=== PATIENT | female | born 1965 | race African-American/Black ===

== ENCOUNTER → 2016-12-17 | Outpatient (CLI) | payer MEDICARE ==
--- NOTE | 2016-12-17 16:26 | KCIC ---
PROCEDURE MRI study of the left foot without contrast HISTORY New small wound of the 3rd metatarsal area. Possible osteomyelitis. History of previous amputations. TECHNIQUE Noncontrast MRI sequences of the left forefoot and midfoot were performed in all 3 planes. COMPARISON MRI study of the left foot dated August 06, 2015. FINDINGS The 2nd and 3rd and 5th digits have been amputated at the level of the metatarsal phalangeal joint. There is a round fluid collection encircling the distal epiphysis of the 2nd metatarsal bone. An abscess is certainly possible. This measures 2.4 centimeters in greatest dimension. No underlying T1 marrow signal abnormality or cortical erosion is seen. No underlying T2 bone marrow edema is evident. There is a dorsal soft tissue ulcer involving the area overlying the distal 3rd metatarsal bone. A sinus tract is seen extending deep from this ulcer all the way to the dorsal surface of the distal 3rd metatarsal epiphysis. There is cortical erosion and slight T1 marrow signal abnormality dorsally within this epiphysis. There is mild T2 bone marrow edema here. The findings are consistent with early osteomyelitis of the distal 3rd metatarsal bone. This is a new finding. There is decreased signal within the plantar soft tissues around the distal 5th metatarsal epiphysis. This could represent skin and/or soft tissue breakdown. No abscess or soft tissue edema is seen here. No underlying osteomyelitis is seen here. No fracture is evident. 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 There is lateral subluxation of the 1st proximal phalanx with respect to the distal 1st metatarsal bone. There is primary degenerative osteoarthritis involving the joint space between the sesamoid bones and the distal 1st metatarsal bone. The first proximal and distal phalanges are rotated and the 1st digit is flexed and angled laterally. No complete tendon rupture or tenosynovitis is seen. There is a small joint effusion of the 4th metatarsal phalangeal joint. Dorsal subcutaneous soft tissue edema is seen most prominent over the 3rd and 4th metatarsal region. This may represent cellulitis. IMPRESSION Amputation of the 2nd and 3rd and 5th digits at the level of the metatarsal phalangeal joint. Dorsal soft tissue wound overlying the distal 3rd metatarsal epiphysis. Sinus tract is seen extending down to the dorsal surface of the distal epiphysis. There are findings of early osteomyelitis of the distal 3rd metatarsal epiphysis. This is new since the previous study of 2014. No fracture is seen. Fluid collection is seen encircling the distal 2nd metatarsal epiphysis. This could represent a soft tissue abscess. Additional findings as discussed above. Electronically signed by: Marcelo Pizarro MD (Dec 17, 2016 16:24:28)
== END | disposition home or self-care (01) ==
LOC: KCIC MRI 13:12
PROVIDERS: ATTEND Podiatrist Foot & Ankle Surgery
DX: M86.8X7 Other osteomyelitis, ankle and foot (principal); M19.072 Primary osteoarthritis, left ankle and foot; M25.475 Effusion, left foot
CPT/HCPCS: 73718

== ENCOUNTER → 2017-03-09 | Outpatient (CLI) | payer MEDICARE | END | disposition home or self-care (01) | LOC: PMGWOUND 07:50 | PROVIDERS: ATTEND Emergency Medicine Undersea and Hyperbaric Medicine | DX: E11.621 Type 2 diabetes mellitus with foot ulcer (principal); L97.512 Non-pressure chronic ulcer of other part of right foot with fat layer exposed; L97.522 Non-pressure chronic ulcer of other part of left foot with fat layer exposed; E11.69 Type 2 diabetes mellitus with other specified complication; M86.8X7 Other osteomyelitis, ankle and foot; M19.072 Primary osteoarthritis, left ankle and foot; Z89.422 Acquired absence of other left toe(s) | CPT/HCPCS: 87205; 97597 ==

== ENCOUNTER → 2017-03-16 | Outpatient (CLI) | payer MEDICARE ==
--- NOTE | 2017-03-16 13:50 | RAD ---
EXAM: Left foot 3 views. HISTORY: Nonhealing wound. COMPARISON: None. FINDINGS: The 2nd, 3rd and 5th digits have been amputated. There is a deep ulcer along the plantar aspect of the 2nd metatarsal head. This extends to near the bone if not to the bone. There is no definitive cortical erosion to indicate acute osteomyelitis. There is moderate to severe hallux valgus with mild to moderate 1st metatarsophalangeal osteoarthritis. No fractures are identified. Tarsometatarsal osteoarthritis is moderate. Pes planus is noted. There is a moderate plantar calcaneal spur. IMPRESSION: 1. A deep ulcer overlying the 2nd metatarsal head extends at least to near the bone. No gross radiographic evidence of acute osteomyelitis. If the ulcer extends to the bone, osteomyelitis may be presumed.
== END | disposition home or self-care (01) ==
LOC: PMGWOUND 08:05
PROVIDERS: ATTEND Emergency Medicine Undersea and Hyperbaric Medicine
DX: E11.621 Type 2 diabetes mellitus with foot ulcer (principal); L97.512 Non-pressure chronic ulcer of other part of right foot with fat layer exposed; L97.411 Non-pressure chronic ulcer of right heel and midfoot limited to breakdown of skin; L97.522 Non-pressure chronic ulcer of other part of left foot with fat layer exposed; E11.69 Type 2 diabetes mellitus with other specified complication; M86.8X7 Other osteomyelitis, ankle and foot; M19.072 Primary osteoarthritis, left ankle and foot; Z89.422 Acquired absence of other left toe(s)
CPT/HCPCS: 73630; 97597

== ENCOUNTER → 2017-03-18 | Outpatient (CLI) | payer MEDICARE | END | disposition home or self-care (01) | LOC: PMGWOUND 08:38 | PROVIDERS: ATTEND Emergency Medicine Undersea and Hyperbaric Medicine | DX: E11.621 Type 2 diabetes mellitus with foot ulcer (principal); L97.512 Non-pressure chronic ulcer of other part of right foot with fat layer exposed; L97.411 Non-pressure chronic ulcer of right heel and midfoot limited to breakdown of skin; L97.522 Non-pressure chronic ulcer of other part of left foot with fat layer exposed; E11.69 Type 2 diabetes mellitus with other specified complication; M86.8X7 Other osteomyelitis, ankle and foot; M19.072 Primary osteoarthritis, left ankle and foot; Z89.422 Acquired absence of other left toe(s) | CPT/HCPCS: 11042 ==

== ENCOUNTER → 2017-03-22 | Outpatient (CLI) | payer MEDICARE | END | disposition home or self-care (01) | LOC: PMGWOUND 14:32 | PROVIDERS: ATTEND Emergency Medicine Undersea and Hyperbaric Medicine | DX: E11.621 Type 2 diabetes mellitus with foot ulcer (principal); L97.522 Non-pressure chronic ulcer of other part of left foot with fat layer exposed; L97.513 Non-pressure chronic ulcer of other part of right foot with necrosis of muscle; M19.072 Primary osteoarthritis, left ankle and foot; E11.69 Type 2 diabetes mellitus with other specified complication; M86.8X7 Other osteomyelitis, ankle and foot; Z89.422 Acquired absence of other left toe(s) | CPT/HCPCS: 11042; 97597 ==

== ENCOUNTER 2018-02-13 19:10 | Emergency (ER) | payer MEDICARE | END 2018-02-13 20:45 | disposition home or self-care (01) | LOC: ER 19:10 | DX: E10.621 Type 1 diabetes mellitus with foot ulcer (principal); I10 Essential (primary) hypertension | CPT/HCPCS: 99283 ==

== ENCOUNTER 2018-08-11 18:07 | Emergency (ER) | payer MEDICARE ==
[~2018-08-11] VITALS: Ht 175.3 cm; Wt 106.1 kg
[~2018-08-11 18:07] MED LIST: CLIN150C14 PO
[2018-08-11 18:38] VITALS: BP 150/68
[2018-08-11] MEDS ORDERED: HYDR-971 PO (19:33)
--- NOTE | 2018-08-11 19:33 | PHYS DOC ---
Past Medical History Past Medical History: Diabetes-Type II, Hypertension Past Surgical History: Other Additional Past Surgical Histo: BILATERAL TOES AMPUTATED Alcohol Use: None Drug Use: None Adult General Chief Complaint Chief Complaint: OTHER COMPLAINTS HPI HPI Patient is a 53 year old female with a history of diabetes type 2, high blood pressure, who presents today requesting wound check, patient has chronic diabetic foot ulcers, she follows up with wound clinic in [place]. She states she has a visiting nurse locally who comes to see her and change her wound. She states she was given a cum boot which has been digging in her right medial ankle wound. She is requesting the area to be evaluated. She typically has a wound VAC but they did not put it on today because they wanted the wound evaluated. She is currently on Bactrim. Review of Systems Review of Systems Constitutional: Denies fever or chills [] Musculoskeletal: Denies back pain or joint pain [] Integument: visit for wound check[] Neurologic: Denies headache, focal weakness or sensory changes [] All other systems were reviewed and found to be within normal limits, except as documented in this note. Allergies Allergies Allergies Coded Allergies Type Severity Reaction Last Updated Verified No Known Drug Allergies 02/13/18 No Physical Exam Physical Exam Constitutional: Well developed, well nourished, no acute distress, non-toxic appearance. [] Skin: Chronic and amputated second third and fourth toes, right medial ankle with a stage II diabetic foot ulcer, there is a pressure list or the middle of the ulcer. There is slight erythema on the margins of the wound, wound approximates size is 4X4. No drainage. Right inner foot/arch of foot with stage 4 diabetic foot ulcer approximately 5 x 5 cm. There is wet-to-dry dressing to the area. There is no erythema to the area. Neurovascular exam is intact to the foot. No signs of active infection. Back: No tenderness, no CVA tenderness. [] Extremities: No tenderness, no cyanosis, no clubbing, ROM intact, no edema. [] Neurologic: Alert and oriented X 3, normal motor function, normal sensory function, no focal deficits noted. [] Psychologic: Affect normal, judgement normal, mood normal. [] Current Patient Data Vital Signs Vital Signs Date Time Temp Pulse Resp B/P (MAP) Pulse Ox O2 Delivery O2 Flow Rate FiO2 08/11/18 18:38 99.1 115 18 150/68 (95) 98 Room Air 99.1 EKG EKG [] Radiology/Procedures Radiology/Procedures [] Course & Med Decision Making Course & Med Decision Making Pertinent Labs and Imaging studies reviewed. (See chart for details) This is a 53-year-old female patient with diabetes type 2 presenting today for wound check for diabetic foot ulcer, she has 2 of them one on the medial aspect of the foot and the other one on the arc of the foot. These are chronic. She follows up with the wound clinic at [place] and also has a wound care nurse who comes to her house for wound\dressing changes. She is here because she developed a blister from cam boot. The blister was evaluated. We could not find anyone in the hospital to do a wound vac in the Ed. We called med surg, ICU floor and they recommended wound care clinic in the AM. Patient states she already has a wound care nurse will come and do the wound VAC tomorrow morning and will not follow up with any wound clinics locally the last time i had her as a patient she stated wound clinic doctor locally is racist. Wet-to-dry dressing was applied to the area. She is already on Bactrim. Her tetanus is up- to-date. F/u with her doctor in [place] Lisa Disclaimer Lisa Disclaimer This electronic medical record was generated, in whole or in part, using a voice recognition dictation system. Departure Departure Impression: Primary Impression: Visit for wound check Disposition: 01 HOME, SELF-CARE Condition: STABLE Referrals: SENA CANNON MD (PCP) follow up with your wound clinic or nurse as soon as you can Patient Instructions: Wound Check Additional Instructions: Your wounds were evaluated in the emergency room, we recommend you follow-up with the home health nurse tomorrow morning and have them put the wound vac on. In the meantime continue taking your antibiotics. Scripts Hydrocodone/Apap 5-325 (NORCO 5-325 TABLET) 1 Each Tablet 1 TAB PO Q6HRS PRN for PAIN, #10 TAB Prov: JAE ESCOTO APRN 08/11/18 JAE ESCOTO APRN Aug 11, 2018 19:33
[2018-08-14] MEDS ORDERED: AMLO10TA6 PO (02:38)
[2018-08-14] MEDS ORDERED: FURO-68 PO (02:38)
[2018-08-14] MEDS ORDERED: SULF1TAB24 PO (02:38)
[2018-08-14] MEDS ORDERED: INSU100I17 SQ (02:38)
[2018-08-14] MEDS ORDERED: GABA-585 PO (02:38)
[2018-08-14] MEDS ORDERED: POTA20TA82 PO (02:38)
[2018-08-14] MEDS ORDERED: INSU100I13 SQ (02:38)
== END 2018-08-11 19:40 | disposition home or self-care (01) ==
LOC: ER 18:07
DX: Z48.00 Encounter for change or removal of nonsurgical wound dressing (principal); E11.621 Type 2 diabetes mellitus with foot ulcer; L97.519 Non-pressure chronic ulcer of other part of right foot with unspecified severity; I10 Essential (primary) hypertension
CPT/HCPCS: 99283

== ENCOUNTER → 2018-09-19 | Outpatient (CLI) | payer MEDICARE ==
[2018-08-19 11:36] VITALS: BP 129/71
[~2018-09-19] MED LIST changes: +AMLO10TA6 PO; +FURO-68 PO; +GABA-585 PO; +HYDR-3164 PO; +INSU100I13 SQ; +INSU100I17 SQ; +POTA20TA82 PO; +SULF1TAB24 PO; +[UNRECOGNIZED DRUG - CODE] IV
[2018-09-19 12:41] LABS: HEMATOCRIT 26.2 % (36.0-47.0); HEMOGLOBIN 8.6 g/dL (12.0-15.5)
== END | disposition home or self-care (01) ==
LOC: PMGWOUND 11:12
PROVIDERS: ATTEND Emergency Medicine Undersea and Hyperbaric Medicine
DX: E11.621 Type 2 diabetes mellitus with foot ulcer (principal); L97.514 Non-pressure chronic ulcer of other part of right foot with necrosis of bone; E11.622 Type 2 diabetes mellitus with other skin ulcer; L97.314 Non-pressure chronic ulcer of right ankle with necrosis of bone; E11.69 Type 2 diabetes mellitus with other specified complication; M86.9 Osteomyelitis, unspecified; E11.610 Type 2 diabetes mellitus with diabetic neuropathic arthropathy; E11.40 Type 2 diabetes mellitus with diabetic neuropathy, unspecified; E11.65 Type 2 diabetes mellitus with hyperglycemia; E11.10 Type 2 diabetes mellitus with ketoacidosis without coma; E11.52 Type 2 diabetes mellitus with diabetic peripheral angiopathy with gangrene; E11.00 Type 2 diabetes mellitus with hyperosmolarity without nonketotic hyperglycemic-hyperosmolar coma (NKHHC); L84 Corns and callosities; I10 Essential (primary) hypertension; M19.90 Unspecified osteoarthritis, unspecified site; K21.9 Gastro-esophageal reflux disease without esophagitis; Z79.4 Long term (current) use of insulin; Z86.718 Personal history of other venous thrombosis and embolism
CPT/HCPCS: 36415; 82962; 85014; 85018; 99215

== ENCOUNTER → 2018-09-29 | Outpatient (CLI) | payer MEDICARE ==
[2018-09-23 11:00] VITALS: BP 142/89
[~2018-09-29] MED LIST changes: +ASCO500T2 PO; +LACT1CAP19 PO; +MULT1TAB52 PO
== END | disposition home or self-care (01) ==
LOC: PMGWOUND 12:39
PROVIDERS: ATTEND Emergency Medicine Undersea and Hyperbaric Medicine
DX: E11.621 Type 2 diabetes mellitus with foot ulcer (principal); L97.514 Non-pressure chronic ulcer of other part of right foot with necrosis of bone; L97.414 Non-pressure chronic ulcer of right heel and midfoot with necrosis of bone; L97.314 Non-pressure chronic ulcer of right ankle with necrosis of bone; E11.622 Type 2 diabetes mellitus with other skin ulcer; E11.69 Type 2 diabetes mellitus with other specified complication; M86.8X7 Other osteomyelitis, ankle and foot; E11.610 Type 2 diabetes mellitus with diabetic neuropathic arthropathy; E11.42 Type 2 diabetes mellitus with diabetic polyneuropathy; E11.51 Type 2 diabetes mellitus with diabetic peripheral angiopathy without gangrene; E11.00 Type 2 diabetes mellitus with hyperosmolarity without nonketotic hyperglycemic-hyperosmolar coma (NKHHC); E11.65 Type 2 diabetes mellitus with hyperglycemia; E11.10 Type 2 diabetes mellitus with ketoacidosis without coma; E11.52 Type 2 diabetes mellitus with diabetic peripheral angiopathy with gangrene; I96 Gangrene, not elsewhere classified; I10 Essential (primary) hypertension; L84 Corns and callosities; F41.9 Anxiety disorder, unspecified; E78.5 Hyperlipidemia, unspecified; M19.90 Unspecified osteoarthritis, unspecified site; K21.9 Gastro-esophageal reflux disease without esophagitis; E66.9 Obesity, unspecified; Z68.35 Body mass index [BMI] 35.0-35.9, adult; Z79.4 Long term (current) use of insulin; Z86.718 Personal history of other venous thrombosis and embolism
CPT/HCPCS: 11042; 11045

== ENCOUNTER → 2018-10-03 | Outpatient (CLI) | payer MEDICARE ==
[2018-09-23 11:00] VITALS: BP 142/89
[~2018-10-03] MED LIST changes: +IOHEXOL 240 MG/ML 50ML VIAL. IV ONE; +IOHEXOL 240 MG/ML 50ML VIAL. ONE; +LIDOCAINE WITH 8.4% SOD BICARB 3 ML DISP.SYRIN. INJ ONE; +LIDOCAINE WITH 8.4% SOD BICARB 3 ML DISP.SYRIN. ONE
--- NOTE | 2018-10-03 15:45 | NUR ---
Nursing Pt here for PICC line replacement. New midline placed to L upper arm, dressing clean and dry. Pt tolerated well. Escorted out per wc. TUNDE RN
--- NOTE | 2018-10-05 11:05 | RAD ---
Exam: Fluoroscopic and ultrasound guided right percutaneous inserted midline catheter placement .Indication: IV Antibiotic therapy. Poor venous access Technique: Informed oral and written consent were obtained. The right upper extremity was prepped and draped using sterile barrier technique. All elements of maximal sterile barrier technique including the use of a cap, mask, sterile gown, sterile gloves, large sterile sheet, appropriate hand hygiene, and 2% chlorhexidine for cutaneous antisepsis (or acceptable alternative antiseptic per current guidelines) were followed for this procedure.. Real-time ultrasound demonstrated a patent but very small right basilic vein. The right upper extremity was prepped and draped in usual sterile fashion. 1% lidocaine used for local anesthesia. Ultrasound guidance is used to attempt venous puncture. This was unsuccessful. The left arm was then prepped and draped using sterile barrier technique. Ultrasound evaluation demonstrated patent. Brachial veins. One of these areas was accessed using direct ultrasound guidance. Reference ultrasound images were saved to the medical record. A guidewire would not advance centrally. 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 The decision to place a midline catheter for amniotic therapy was then made. The catheter was trimmed to length and advanced into the vein. The catheter flush and aspirate normally. Catheter was secured in place and sterile dressings were applied. FLUORO TIME: 2.9 MINS DOSE AREA PRODUCT: 31 Gycm2 Impression: Occlusion of the left subclavian vein with subsequent placement of a left upper extremity midline
== END | disposition home or self-care (01) ==
LOC: INTRAD 14:45
PROVIDERS: ATTEND Internal Medicine
DX: E11.610 Type 2 diabetes mellitus with diabetic neuropathic arthropathy (principal); L03.115 Cellulitis of right lower limb; I99.8 Other disorder of circulatory system; Z91.048 Other nonmedicinal substance allergy status
CPT/HCPCS: 36569; 76937; 77001; C1751; C1892; Q9966

== ENCOUNTER → 2018-10-06 | Outpatient (CLI) | payer MEDICARE ==
[2018-09-23 11:00] VITALS: BP 142/89
[~2018-10-06] MED LIST changes: -IOHEXOL 240 MG/ML 50ML VIAL. IV ONE; -IOHEXOL 240 MG/ML 50ML VIAL. ONE; -LIDOCAINE WITH 8.4% SOD BICARB 3 ML DISP.SYRIN. INJ ONE; -LIDOCAINE WITH 8.4% SOD BICARB 3 ML DISP.SYRIN. ONE
== END | disposition home or self-care (01) ==
LOC: PMGWOUND 12:18
PROVIDERS: ATTEND Emergency Medicine Undersea and Hyperbaric Medicine
DX: E11.621 Type 2 diabetes mellitus with foot ulcer (principal); L97.514 Non-pressure chronic ulcer of other part of right foot with necrosis of bone; L97.414 Non-pressure chronic ulcer of right heel and midfoot with necrosis of bone; E11.69 Type 2 diabetes mellitus with other specified complication; M86.8X7 Other osteomyelitis, ankle and foot; E11.00 Type 2 diabetes mellitus with hyperosmolarity without nonketotic hyperglycemic-hyperosmolar coma (NKHHC); E11.610 Type 2 diabetes mellitus with diabetic neuropathic arthropathy; E11.42 Type 2 diabetes mellitus with diabetic polyneuropathy; E11.65 Type 2 diabetes mellitus with hyperglycemia; E11.10 Type 2 diabetes mellitus with ketoacidosis without coma; E11.52 Type 2 diabetes mellitus with diabetic peripheral angiopathy with gangrene; I96 Gangrene, not elsewhere classified; L84 Corns and callosities; I10 Essential (primary) hypertension; M19.90 Unspecified osteoarthritis, unspecified site; F41.9 Anxiety disorder, unspecified; E78.5 Hyperlipidemia, unspecified; K21.9 Gastro-esophageal reflux disease without esophagitis; E66.9 Obesity, unspecified; Z68.35 Body mass index [BMI] 35.0-35.9, adult; Z79.4 Long term (current) use of insulin; Z86.718 Personal history of other venous thrombosis and embolism
CPT/HCPCS: 97597; 97598

== ENCOUNTER → 2018-10-13 | Outpatient (CLI) | payer MEDICARE ==
[2018-09-23 11:00] VITALS: BP 142/89
== END | disposition home or self-care (01) ==
LOC: PMGWOUND 10:26
PROVIDERS: ATTEND Emergency Medicine Undersea and Hyperbaric Medicine
DX: E11.621 Type 2 diabetes mellitus with foot ulcer (principal); L97.514 Non-pressure chronic ulcer of other part of right foot with necrosis of bone; L97.414 Non-pressure chronic ulcer of right heel and midfoot with necrosis of bone; E11.622 Type 2 diabetes mellitus with other skin ulcer; L97.313 Non-pressure chronic ulcer of right ankle with necrosis of muscle; T70.0XXD Otitic barotrauma, subsequent encounter; E11.52 Type 2 diabetes mellitus with diabetic peripheral angiopathy with gangrene; I96 Gangrene, not elsewhere classified; E11.69 Type 2 diabetes mellitus with other specified complication; M86.8X7 Other osteomyelitis, ankle and foot; E11.00 Type 2 diabetes mellitus with hyperosmolarity without nonketotic hyperglycemic-hyperosmolar coma (NKHHC); E11.610 Type 2 diabetes mellitus with diabetic neuropathic arthropathy; E11.65 Type 2 diabetes mellitus with hyperglycemia; E11.10 Type 2 diabetes mellitus with ketoacidosis without coma; E11.40 Type 2 diabetes mellitus with diabetic neuropathy, unspecified; M19.90 Unspecified osteoarthritis, unspecified site; I10 Essential (primary) hypertension; L84 Corns and callosities; F41.9 Anxiety disorder, unspecified; K21.9 Gastro-esophageal reflux disease without esophagitis; E78.5 Hyperlipidemia, unspecified; E66.9 Obesity, unspecified; Z68.35 Body mass index [BMI] 35.0-35.9, adult; Z79.4 Long term (current) use of insulin; Z86.711 Personal history of pulmonary embolism
CPT/HCPCS: 11042; 11045

== ENCOUNTER → 2018-10-31 | Outpatient (CLI) | payer MEDICARE ==
[2018-09-23 11:00] VITALS: BP 142/89
== END | disposition home or self-care (01) ==
LOC: PMGWOUND 08:54
PROVIDERS: ATTEND Nurse Practitioner Family
DX: E11.621 Type 2 diabetes mellitus with foot ulcer (principal); L97.514 Non-pressure chronic ulcer of other part of right foot with necrosis of bone; L97.414 Non-pressure chronic ulcer of right heel and midfoot with necrosis of bone; E11.622 Type 2 diabetes mellitus with other skin ulcer; L97.314 Non-pressure chronic ulcer of right ankle with necrosis of bone; T70.0XXD Otitic barotrauma, subsequent encounter; E11.69 Type 2 diabetes mellitus with other specified complication; M86.8X7 Other osteomyelitis, ankle and foot; E11.10 Type 2 diabetes mellitus with ketoacidosis without coma; E11.610 Type 2 diabetes mellitus with diabetic neuropathic arthropathy; E11.42 Type 2 diabetes mellitus with diabetic polyneuropathy; E11.65 Type 2 diabetes mellitus with hyperglycemia; E11.00 Type 2 diabetes mellitus with hyperosmolarity without nonketotic hyperglycemic-hyperosmolar coma (NKHHC); E11.52 Type 2 diabetes mellitus with diabetic peripheral angiopathy with gangrene; I96 Gangrene, not elsewhere classified; L84 Corns and callosities; M19.90 Unspecified osteoarthritis, unspecified site; F41.9 Anxiety disorder, unspecified; E78.5 Hyperlipidemia, unspecified; K21.9 Gastro-esophageal reflux disease without esophagitis; E66.9 Obesity, unspecified; Z68.35 Body mass index [BMI] 35.0-35.9, adult; Z79.4 Long term (current) use of insulin; Z86.711 Personal history of pulmonary embolism; Z86.718 Personal history of other venous thrombosis and embolism
CPT/HCPCS: 11044; 11047

== ENCOUNTER 2018-11-04 09:47 | Outpatient (CLI) | payer MEDICARE ==
[2018-09-23 11:00] VITALS: BP 142/89
[~2018-11-04] VITALS: Ht 175.3 cm; Wt 108.9 kg
[~2018-11-04 09:47] MED LIST changes: -AMLO10TA6 PO; +AMLO10TA8 PO
[2018-11-04] MEDS ORDERED: LIDOCAINE WITH 8.4% SOD BICARB 3 ML DISP.SYRIN. ONE (10:37)
[2018-11-04] MEDS ORDERED: LIDOCAINE WITH 8.4% SOD BICARB 3 ML DISP.SYRIN. INJ ONE (11:15)
[2018-11-04] MEDS ORDERED: IOHEXOL 240 MG/ML 50ML VIAL. ONE (11:22)
[2018-11-04] MEDS ORDERED: IOHEXOL 240 MG/ML 50ML VIAL. IJ ONE (11:30)
[2018-11-04] MEDS ORDERED: CONTRAST GIVEN. MC PRN (11:30)
--- NOTE | 2018-11-04 13:43 | RAD ---
Procedure: Right upper extremity venogram, axillary vein angioplasty, and ultrasound and fluoroscopic guided PICC line placement Clinical Indication: 53-year-old with chronic infection requiring long-term antibiotic therapy. Existing left upper extremity midline no longer functions. Sedation: Local anesthesia only Antibiotics: None Exposure: Kerma-Area Product: 2 Gycm2 Sterility: All elements of maximal sterile barrier technique including the use of a cap, mask, sterile gown, sterile gloves, large sterile sheet, appropriate hand hygiene, and 2% chlorhexidine for cutaneous antisepsis (or acceptable alternative antiseptic per current guidelines) were followed for this procedure. If ultrasound guidance was utilized, sterile ultrasound techniques were followed including use of a sterile probe cover. Consent: The procedure was explained in its entirety to the patient or the patients designated indirect sales representative by a member of the treatment team, including a discussion of the risks, benefits and commonly accepted alternatives to the procedure, as well as the expected consequences of no therapy whatsoever. Discussion of the risks included, but was not limited to, those that are most frequent and those that are rare but possibly severe or life-threatening, as well as the possibility of unforeseen complications. Technique and Findings: Following informed consent, the patient was prepped and draped in usual sterile fashion. Ultrasound interrogation of the right arm revealed patency of the right basilic vein. 1% lidocaine was used to achieve local anesthesia. A Hardcopy ultrasound image was recorded. As a 21-gauge micropuncture needle was used to gain access to this vein. The needle was exchanged over wire for a 5 Bulgarian peel-away sheath. Attempts to advance the wire distal to the axilla were unsuccessful. 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 There is reconstitution of the distal axillary vein. The catheter was advanced into the high brachial vein and used to probe the stenosis. Multiple attempts to the negotiate the stenosis using a catheter and wire combination were unsuccessful. A wire was successfully advanced beyond the stenosis, and a 4 mm x 100 mm angioplasty balloon was then used to angioplasty the stenosis for 2 minutes. The balloon was then removed, and a double-lumen PICC line was advanced over the wire, through the peel-away sheath, and deployed such that the distal tip resided in the proximal right atrium. Both lumens flushed and aspirated with ease. The PICC line was then affixed to the skin and flushed with saline and capped. Complications: No immediate Impression: 1. 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 This is successfully improved following 4 mm balloon angioplasty. 2. Ultrasound and fluoroscopic guided placement of right upper extremity PICC line following angioplasty of the right axillary vein as described. This PICC line is suitable for use.
== END 2018-11-04 11:45 | disposition home or self-care (01) ==
LOC: INTRAD 09:47
PROVIDERS: ATTEND Preventive Medicine Undersea and Hyperbaric Medicine
DX: Z45.2 Encounter for adjustment and management of vascular access device (principal); I87.1 Compression of vein; Z88.8 Allergy status to other drugs, medicaments and biological substances
CPT/HCPCS: 36569; 37248; 75820; 76937; 77001; C1713; C1725; C1751; C1769; C1892; Q9966

== ENCOUNTER → 2018-12-22 | Outpatient (CLI) | payer MEDICARE ==
[2018-09-23 11:00] VITALS: BP 142/89
== END | disposition home or self-care (01) ==
LOC: PMGWOUND 11:07
PROVIDERS: ATTEND Emergency Medicine Undersea and Hyperbaric Medicine
DX: E11.621 Type 2 diabetes mellitus with foot ulcer (principal); L97.514 Non-pressure chronic ulcer of other part of right foot with necrosis of bone; L97.414 Non-pressure chronic ulcer of right heel and midfoot with necrosis of bone; E11.622 Type 2 diabetes mellitus with other skin ulcer; L97.314 Non-pressure chronic ulcer of right ankle with necrosis of bone; E11.10 Type 2 diabetes mellitus with ketoacidosis without coma; E11.610 Type 2 diabetes mellitus with diabetic neuropathic arthropathy; E11.42 Type 2 diabetes mellitus with diabetic polyneuropathy; E11.65 Type 2 diabetes mellitus with hyperglycemia; E11.69 Type 2 diabetes mellitus with other specified complication; M86.8X7 Other osteomyelitis, ankle and foot; E11.52 Type 2 diabetes mellitus with diabetic peripheral angiopathy with gangrene; I96 Gangrene, not elsewhere classified; L84 Corns and callosities; E78.5 Hyperlipidemia, unspecified; M19.90 Unspecified osteoarthritis, unspecified site; K21.9 Gastro-esophageal reflux disease without esophagitis; F41.9 Anxiety disorder, unspecified; E66.9 Obesity, unspecified; Z68.35 Body mass index [BMI] 35.0-35.9, adult; Z86.718 Personal history of other venous thrombosis and embolism; Z79.4 Long term (current) use of insulin; Z86.711 Personal history of pulmonary embolism; Z88.8 Allergy status to other drugs, medicaments and biological substances
CPT/HCPCS: 99214; G0463

== ENCOUNTER → 2018-12-29 | Outpatient (CLI) | payer MEDICARE ==
[2018-09-23 11:00] VITALS: BP 142/89
== END | disposition home or self-care (01) ==
LOC: PMGWOUND 11:02
PROVIDERS: ATTEND Emergency Medicine Undersea and Hyperbaric Medicine
DX: E11.621 Type 2 diabetes mellitus with foot ulcer (principal); L97.514 Non-pressure chronic ulcer of other part of right foot with necrosis of bone; L97.414 Non-pressure chronic ulcer of right heel and midfoot with necrosis of bone; E11.622 Type 2 diabetes mellitus with other skin ulcer; L97.312 Non-pressure chronic ulcer of right ankle with fat layer exposed; E11.69 Type 2 diabetes mellitus with other specified complication; M86.8X7 Other osteomyelitis, ankle and foot; E11.610 Type 2 diabetes mellitus with diabetic neuropathic arthropathy; E11.42 Type 2 diabetes mellitus with diabetic polyneuropathy; E11.65 Type 2 diabetes mellitus with hyperglycemia; E11.10 Type 2 diabetes mellitus with ketoacidosis without coma; E11.00 Type 2 diabetes mellitus with hyperosmolarity without nonketotic hyperglycemic-hyperosmolar coma (NKHHC); E11.52 Type 2 diabetes mellitus with diabetic peripheral angiopathy with gangrene; I96 Gangrene, not elsewhere classified; L84 Corns and callosities; E78.5 Hyperlipidemia, unspecified; K21.9 Gastro-esophageal reflux disease without esophagitis; M19.90 Unspecified osteoarthritis, unspecified site; F41.9 Anxiety disorder, unspecified; E66.9 Obesity, unspecified; Z68.35 Body mass index [BMI] 35.0-35.9, adult; Z88.8 Allergy status to other drugs, medicaments and biological substances; Z79.4 Long term (current) use of insulin; Z86.718 Personal history of other venous thrombosis and embolism; Z86.711 Personal history of pulmonary embolism
CPT/HCPCS: 11042; 97597